=== PATIENT | female | born 1960 | race African-American/Black ===

== ENCOUNTER → 2017-05-30 | Outpatient (CLI) | payer BC ==
--- NOTE | ~2017-05-30 | MR113 ---
[facility] RADIOLOGY TEXT RESULTS PATIENT: NOMAN BARRETO LOCATION: [facility] : 60 UNIT #: [id number] AGE: [address]: Toshia Baum MD SEX: F ORDER DR: [id number] [place] [id number] O MR#: [id number] Acc #: [id number] NAME: NOMAN BARRETO : 1960 SEX: F STUDY DATE/TIME: 05/30/2017 8:48 UNIT: [facility] ROOM: STUDY DESCRIPTION: MR Lumbar Wo Contrast Attending Physician: Toshia Baum M.D. Referring Physician: Toshia Baum M.D. Ordering Physician: Toshia Baum M.D. Primary Care Physician: Amparo Hussein M.D. MRI CENTER REPORT This report is preliminary unless electronic signature is present. EXAM Lumbar spine MRI, no contrast; 05/30/2017. PROCEDURE Routine unenhanced lumbar spine MRI COMPARISON None. CLINICAL HISTORY Low back pain for 1 month. FINDINGS Alignment is normal. Bone marrow signal is normal. The distal cord and conus are normal in position and appearance. The paraspinous tissues are normal. At 1-2 and 2-3, the disc, canal and foramina are normal. At 3-4, the disc canal and foramina are normal despite mild facet arthropathy. At 4-5, there is again facet arthropathy and no disc bulge or protrusion and no canal or foraminal stenosis. At 5-1, there is slight discogenic change and minimal facet degenerative change. There is no canal stenosis and there is borderline, if any, bilateral foraminal narrowing. IMPRESSION There is some facet arthropathy at a few levels, and even borderline foraminal narrowing bilaterally at 5-1, but no acute abnormality is seen at any level. [facility] RADIOLOGY TEXT RESULTS PATIENT: NOMAN BARRETO LOCATION: [facility] : 60 UNIT #: [id number] AGE: [address]: Toshia Baum MD SEX: F ORDER DR: Dictated by... Renzo Bergeron M.D. THIS IS AN ELECTRONICALLY VERIFIED REPORT Renzo Bergeron M.D. at 06/04/2017 5:20 PM TEV/yadira TD: 05/31/2017 15:48 JOB #: [id number] MRI CENTER REPORT Page 1 of 1
== END | disposition home or self-care (01) ==
LOC: CMRI 05-23 09:00 → SMRI 08:03 → CMRI 08:45
DX: M54.9 Dorsalgia, unspecified (principal); M46.96 Unspecified inflammatory spondylopathy, lumbar region; M99.83 Other biomechanical lesions of lumbar region; M99.84 Other biomechanical lesions of sacral region
CPT/HCPCS: 72148